=== PATIENT | male | born 1935 | race Caucasian/White ===

== ENCOUNTER → 2016-11-22 | Outpatient (REF) ==
[~2016-11-22] MED LIST: FLORINEF ACETA0.1 MG PO; PREVACID 30MG30 M1 PO; SYNTHROID 0.0.025 MG PO; ZOMIG 2.5MG2.5 MG PO
[2016-11-22 10:55] LABS: PSA-TOTAL < 0.10 ng/mL (0-4)
== END ==
LOC: ZLAB.WCH 10:06
PROVIDERS: Internal Medicine
DX: Z01.89 Encounter for other specified special examinations (principal)
CPT/HCPCS: G0103

== ENCOUNTER → 2016-12-01 | Outpatient (REF) ==
[2016-12-01 15:52] LABS: TOTAL IRON BINDING CAPACITY 313 ug/dL (261-462)
[2016-12-01 16:19] LABS: FERRITIN 205 ng/mL (18-464)
== END ==
LOC: ZLAB.WCH 15:27
PROVIDERS: Internal Medicine
DX: Z01.89 Encounter for other specified special examinations (principal)

== ENCOUNTER 2017-02-02 18:35 | Inpatient (IN) | payer MEDICARE ==
[~2017-02-02] VITALS: Ht 172.7 cm; Wt 68.0 kg
[2017-02-02 18:59] VITALS: BP 183/88; PULSE 77; TEMP 99.9
[2017-02-02] MEDS ORDERED: PREVACID 30MG30 M1 PO (20:53)
[2017-02-02] MEDS ORDERED: FLORINEF ACETA0.1 MG PO (20:54)
[2017-02-02] MEDS ORDERED: SYNTHROID 0.0.025 MG PO (20:55)
[2017-02-02] MEDS ORDERED: ZOMIG 2.5MG2.5 MG PO (20:57)
[2017-02-02 21:49] VITALS: BP 169/87; PULSE 78; TEMP 98.3
[2017-02-03] VITALS (8 sets, daily range): BP systolic 126–188; BP diastolic 54–83; PULSE 61–79; TEMP 98.2–100.8
[2017-02-03 08:07] LABS: BASO % 0.2 % (0.0-2.0); EOS # 0.1 (0.0-0.7); EOS % 0.8 % (0-4.0); GRAN # 10.7 (1.4-6.5); GRAN % 80.8 % (42.2-75.2); HEMATOCRIT 38.7 % (42.0-52.0); HEMOGLOBIN 13.5 g/dl (13.5-18.0); LYMPH # 1.5 (1.2-3.4); MEAN CELL VOLUME 89 fl (80.0-100.0); MEAN CORPUSCULAR HEMOGLOBIN 31 pg (27.0-31.0); MEAN CORPUSCULAR HGB CONC 35 g/dl (33.0-37.0); MEAN PLATELET VOLUME 10.8 fl (7.4-10.4); MONO # 0.9 (0.1-0.6); MONO % 6.7 % (1.7-9.3); PLATELET COUNT 177 K/mm3 (130-400); RED BLOOD COUNT 4.34 M/mm3 (4.20-5.60); REDCELL DISTRIBUTION WIDTH-CV 13.9 % (11.5-14.5); WHITE BLOOD COUNT 13.2 K/mm3 (4.8-10.8)
[2017-02-03 08:10] LABS: BILIRUBIN,TOTAL 7.4 mg/dL (0.0-1.0); CALCIUM 8.8 mg/dL (8.4-10.2); CREATININE, serum 1.27 mg/dL (0.66-1.25); POTASSIUM 3.6 mmol/L (3.4-5.0); TOTAL PROTEIN 6.7 gm/dL (6.4-8.2)
[2017-02-03 08:30] LABS: ADJUSTED CALCIUM 9.2 mg/dL (8.4-10.2); ALBUMIN 3.5 gm/dL (3.5-5.0)
[2017-02-04] VITALS (12 sets, daily range): BP systolic 130–203; BP diastolic 63–90; PULSE 58–86; TEMP 98–99.9
[2017-02-04 06:57] LABS: MEAN CELL VOLUME 91 fl (80.0-100.0); MEAN CORPUSCULAR HGB CONC 34 g/dl (33.0-37.0); MEAN PLATELET VOLUME 10.7 fl (7.4-10.4); PLATELET COUNT 143 K/mm3 (130-400); REDCELL DISTRIBUTION WIDTH-CV 14.6 % (11.5-14.5); WHITE BLOOD COUNT 8.7 K/mm3 (4.8-10.8)
[2017-02-04 07:28] LABS: ADJUSTED CALCIUM 9.1 mg/dL (8.4-10.2); ALBUMIN 2.9 gm/dL (3.5-5.0); BILIRUBIN,TOTAL 3.3 mg/dL (0.0-1.0); CALCIUM 8.2 mg/dL (8.4-10.2); CREATININE, serum 1.54 mg/dL (0.66-1.25); POTASSIUM 3.3 mmol/L (3.4-5.0); TOTAL PROTEIN 5.8 gm/dL (6.4-8.2)
[2017-02-04 07:45] LABS: HEMATOCRIT 33.5 % (42.0-52.0); HEMOGLOBIN 11.4 g/dl (13.5-18.0); MEAN CORPUSCULAR HEMOGLOBIN 31 pg (27.0-31.0)
[2017-02-05 00:55] VITALS: BP 177/77; PULSE 77; TEMP 98
[2017-02-05 05:49] VITALS: BP 142/61; PULSE 76; TEMP 99.8
[2017-02-05 08:18] LABS: BASO % 0.1 % (0.0-2.0); GRAN # 8.5 (1.4-6.5); GRAN % 82.8 % (42.2-75.2); LYMPH # 0.9 (1.2-3.4); LYMPH % 8.6 % (20.0-51.0); MEAN CELL VOLUME 91 fl (80.0-100.0); MEAN CORPUSCULAR HGB CONC 34 g/dl (33.0-37.0); MEAN PLATELET VOLUME 10.4 fl (7.4-10.4); MONO # 0.8 (0.1-0.6); MONO % 7.7 % (1.7-9.3); PLATELET COUNT 160 K/mm3 (130-400); REDCELL DISTRIBUTION WIDTH-CV 14.6 % (11.5-14.5); WHITE BLOOD COUNT 10.2 K/mm3 (4.8-10.8)
[2017-02-05 08:21] LABS: HEMATOCRIT 34.6 % (42.0-52.0); HEMOGLOBIN 11.7 g/dl (13.5-18.0); MEAN CORPUSCULAR HEMOGLOBIN 31 pg (27.0-31.0)
[2017-02-05 08:32] LABS: ADJUSTED CALCIUM 8.9 mg/dL (8.4-10.2); BILIRUBIN,TOTAL 2.4 mg/dL (0.0-1.0); CALCIUM 8.1 mg/dL (8.4-10.2); CREATININE, serum 1.29 mg/dL (0.66-1.25); POTASSIUM 3.1 mmol/L (3.4-5.0); TOTAL PROTEIN 5.9 gm/dL (6.4-8.2)
[2017-02-05 09:15] VITALS: BP 143/63; PULSE 63; TEMP 97.8
[2017-02-05 14:01] VITALS: BP 150/69; PULSE 63; TEMP 98.4
[2017-02-05 17:18] VITALS: BP 141/64; PULSE 70; TEMP 98.8
[2017-02-05 21:49] VITALS: BP 157/77; PULSE 74; TEMP 98.1
[2017-02-06 05:03] VITALS: BP 170/86; PULSE 73; TEMP 98.1
[2017-02-06 06:51] LABS: ADD PATHOLOGY DIFF REVIEW NO
[2017-02-06 07:03] LABS: MEAN CELL VOLUME 92 fl (80.0-100.0); MEAN CORPUSCULAR HGB CONC 33 g/dl (33.0-37.0); PLATELET COUNT 140 K/mm3 (130-400); RED BLOOD COUNT 3.84 M/mm3 (4.20-5.60); REDCELL DISTRIBUTION WIDTH-CV 14.9 % (11.5-14.5); WHITE BLOOD COUNT 10.4 K/mm3 (4.8-10.8)
[2017-02-06 07:08] LABS: HEMATOCRIT 35.5 % (42.0-52.0); HEMOGLOBIN 11.8 g/dl (13.5-18.0); MEAN CORPUSCULAR HEMOGLOBIN 31 pg (27.0-31.0)
[2017-02-06 07:09] LABS: ADJUSTED CALCIUM 9.2 mg/dL (8.4-10.2); ALBUMIN 3.2 gm/dL (3.5-5.0); BILIRUBIN,TOTAL 2.3 mg/dL (0.0-1.0); CALCIUM 8.6 mg/dL (8.4-10.2); CREATININE, serum 1.15 mg/dL (0.66-1.25); POTASSIUM 3.7 mmol/L (3.4-5.0)
[2017-02-06 09:12] LABS: BAND 17 % (0-10); EOSINOPHIL 1 % (0-4); NEUTROPHILS 69 % (42.0-75.2); TOTAL CELLS COUNTED 100
[2017-02-06 09:39] VITALS: BP 135/59; PULSE 72; TEMP 98.1
[2017-02-06 13:43] VITALS: BP 125/57; PULSE 71; TEMP 98.4
== END 2017-02-06 18:00 | disposition home or self-care (01) | DRG 413 ==
LOC: SURG 18:35
PROVIDERS: Family Medicine; Surgery
PROC: 0FJB8ZZ Inspection of Hepatobiliary Duct, Via Natural or Artificial Opening Endoscopic (ICD-10-PCS; 2017-02-03)
PROC: 0FJB4ZZ Inspection of Hepatobiliary Duct, Percutaneous Endoscopic Approach (ICD-10-PCS; 2017-02-04)
PROC: 0FC94ZZ Extirpation of Matter from Common Bile Duct, Percutaneous Endoscopic Approach (ICD-10-PCS; 2017-02-04)
PROC: BF101ZZ Fluoroscopy of Bile Ducts using Low Osmolar Contrast (ICD-10-PCS; 2017-02-04)
PROC: 0FT44ZZ Resection of Gallbladder, Percutaneous Endoscopic Approach (ICD-10-PCS; principal; 2017-02-04 17:00)
DX: K80.67 Calculus of gallbladder and bile duct with acute and chronic cholecystitis with obstruction (principal); Z85.46 Personal history of malignant neoplasm of prostate
CPT/HCPCS: 99223-AI; 99231-AI; 99232-AI; A9284; C1757; C1769; C9113; J0360; J1170; J1610; J1644; J2405; J2543; J2704; J2765; J3010; J3480; J7030; J7042; J7050; J7120; Q9967

== ENCOUNTER → 2018-01-05 | Outpatient (REF) ==
[2018-01-05 19:05] LABS: PSA-TOTAL < 0.10 ng/mL (0-4)
== END ==
LOC: ZLAB.WCH 17:53
PROVIDERS: Internal Medicine
DX: Z01.89 Encounter for other specified special examinations (principal)
CPT/HCPCS: G0103

== ENCOUNTER 2018-06-14 10:53 | Outpatient (CLI) | payer MEDICARE ==
[~2018-06-14] VITALS: Ht 172.7 cm; Wt 81.6 kg
[2018-06-14 11:56] VITALS: BP 122/83; PULSE 76; TEMP 98
== END 2018-06-14 17:59 | disposition home or self-care (01) ==
LOC: COL.RAD 10:53
DX: C15.5 Malignant neoplasm of lower third of esophagus (principal); C77.1 Secondary and unspecified malignant neoplasm of intrathoracic lymph nodes; J44.9 Chronic obstructive pulmonary disease, unspecified; K83.8 Other specified diseases of biliary tract; N32.3 Diverticulum of bladder; K57.30 Diverticulosis of large intestine without perforation or abscess without bleeding; G93.89 Other specified disorders of brain; G93.6 Cerebral edema; I63.9 Cerebral infarction, unspecified; Z90.49 Acquired absence of other specified parts of digestive tract; Z90.79 Acquired absence of other genital organ(s)
CPT/HCPCS: A9585; J7030; Q9967

== ENCOUNTER → 2018-09-07 | Outpatient (CLI) | payer MEDICARE | LOC: COL.RAD 09-04 11:00 → EDSTATUS 10:00 | DX: C15.5 Malignant neoplasm of lower third of esophagus (principal); C79.9 Secondary malignant neoplasm of unspecified site; C77.1 Secondary and unspecified malignant neoplasm of intrathoracic lymph nodes; G93.9 Disorder of brain, unspecified; Z90.49 Acquired absence of other specified parts of digestive tract; Z90.79 Acquired absence of other genital organ(s) | CPT/HCPCS: A9585; Q9967 ==

== ENCOUNTER 2018-10-17 13:30 | Outpatient (RCR) | payer MEDICARE ==
[2018-09-03 13:48] VITALS: BP 145/86; PULSE 63; TEMP 97.6
[2018-09-06 13:30] VITALS: BP 126/84; PULSE 80; TEMP 97.8
[2018-09-13 13:13] VITALS: BP 152/84; PULSE 67; TEMP 97.8
[2018-09-17 13:18] VITALS: BP 153/86; PULSE 62; TEMP 97.7
[2018-09-28 13:20] VITALS: BP 187/92; PULSE 62; TEMP 97.6
[2018-09-28 13:42] VITALS: BP 183/94; PULSE 62
[2018-09-28 13:45] VITALS: BP 124/77; PULSE 69
[2018-10-05 14:01] VITALS: BP 173/91; PULSE 73; TEMP 97.7
[2018-10-08 13:42] VITALS: BP 151/88; PULSE 66; TEMP 97.7
[2018-10-10 13:55] VITALS: BP 146/85; PULSE 72; TEMP 97.4
[2018-10-12 13:52] VITALS: BP 176/93; PULSE 69; TEMP 97.5
[~2018-10-17] VITALS: Ht 172.7 cm; Wt 69.9 kg
[2018-10-17 14:17] VITALS: BP 144/80; PULSE 68; TEMP 97.6
== END 2018-10-22 09:34 | disposition home or self-care (01) ==
LOC: EUO 13:30
DX: C78.89 Secondary malignant neoplasm of other digestive organs (principal); Z45.2 Encounter for adjustment and management of vascular access device; Z95.828 Presence of other vascular implants and grafts
CPT/HCPCS: J1644; J7030